=== PATIENT | female | born 1970 | race Caucasian/White ===

== ENCOUNTER 2018-01-08 20:50 | Emergency (ER) | payer MEDICAID ==
[2018-01-08 20:58] VITALS: TEMP 97.9
[2018-01-08] MEDS ORDERED: ADENOSINE 6 MG/2 ML VIAL ONE (20:58)
--- NOTE | 2018-01-08 21:00 | CPEKG ---
Heart Rate: 161 RR Interval: 373 QRSD Interval: 78 QT Interval: 284 QTC Interval: 465 P [place]: 0 QRS [place]: 102 T Wave [place]: 25 EKG Severity - BORDERLINE ECG - EKG Impression: SINUS TACHYCARDIA EKG Impression: RIGHT AXIS DEVIATION EKG Impression: MINIMAL ST DEPRESSION, INFERIOR LEADS Electronically Signed By: Enmanuel Salazar 08-Jan-2018 22:29:51
[2018-01-08] MEDS ORDERED: ADENOSINE 6 MG/2 ML VIAL IVP ONE (21:06)
[2018-01-08] MEDS ORDERED: NS 1,000 ML IV ONE (21:08)
--- NOTE | 2018-01-08 21:11 | EDPHY ---
H & P Smoking Status: Former smoker Time Seen by Provider: 01/08/18 21:07 HPI/ROS: CHIEF COMPLAINT: Rapid heart rate HISTORY OF PRESENT ILLNESS: 47-year-old female presents with rapid heart rate. Sudden onset of rapid heart rate 1 hr ago, associated with anxiety. No chest pain or shortness of breath. History of prior similar episode after taking Sudafed, which spontaneously resolved. She had 1 cup coffee this morning, which is not unusual for her. She has a history of hypothyroidism. Last TSH was normal. No other medications and no recent illness. REVIEW OF SYSTEMS: Constitutional: No fever, no chills Eyes: No visual changes ENT: No sore throat Respiratory: No cough, no shortness of breath Cardiac: No chest pain Gastrointestinal: no vomiting, no abdominal pain Genitourinary: no dysuria Musculoskeletal: No leg pain or swelling Skin: No rash Neurological: No headache, no weakness Psychiatric: No depression (Glenna Pereira) Past Medical/Surgical History: Hypothyroidism (Glenna Pereira) Social History: No recent alcohol (Glenna Pereira) Physical Exam: General Appearance: Alert, pleasant, anxious Eyes: Pupils equal and round, no conjunctival pallor ENT, Mouth: Mucous membranes moist Neck: Normal inspection Respiratory: Lungs are clear to auscultation Cardiovascular: Regular tachycardia Gastrointestinal: Abdomen is soft and nontender Neurological: A&O, nonfocal, normal gait Skin: Warm and dry, no rash Extremities: Normal inspection, no tenderness or swelling Psychiatric: Anxious (Glenna Periera) Constitutional: Initial Vital Signs Temperature (C) 36.6 C 01/08/18 20:56 Heart Rate 170 H 01/08/18 20:56 Respiratory Rate 20 01/08/18 20:56 Blood Pressure 161/126 H 01/08/18 20:56 O2 Sat (%) 94 01/08/18 20:56 O2 Delivery Mode Room Air Allergies/Adverse Reactions: No Known Allergies Allergy (Unverified 04/07/14 01:03) Home Medications: Medication Instructions Recorded Synthroid 02/01/14 Ondansetron Odt [Zofran Odt 4 mg 4 mg PO Q4 PRN #20 tab 04/07/14 (RX)] Oxycodone HCl/Acetaminophen 1 each PO Q6-8PRN #10 tablet 04/07/14 [Percocet 10-325 mg Tablet] Sulfamethox/Tmp 800/160 mg 1 tab PO BID@1000,2200 #14 tab 04/07/14 [Bactrim Ds] Cephalexin [Keflex] 500 mg PO QID #56 cap 05/03/14 Medical Decision Making - Diagnostics EKG Interpretation: EKG interpreted by me reveals SVT, rate 160, no ST or T segment changes. (Glenna Pereira) ED Course/Re-evaluation: This patient presents in SVT. Adenosine 6 mg IV given. Patient converted to normal sinus rhythm. 9:00 p.m.-signed over to Dr. Salazar at shift change. Plan is to check labs and to observe the patient in the emergency department. Heart rate is 100 and patient feels back to her normal baseline status. Labs and repeat EKG pending. (Glenna Pereira) 2117: Patient signed over to me at 9:00 p.m. Shift change. She presented in SVT heart rate in the 160s. She has a repeat EKG status post adenosine conversion sinus rhythm rate of 92. She is resting comfortably. There is no ST elevation no ST depression no significant T-wave abnormalities. No signs of ischemia on this EKG. Patient pending blood work at this time. 2145: Re-evaluation at this time this patient is resting comfortably. Heart rate is currently 97, blood pressure 151/105 pulse ox 97% on room air. She denies any chest pain or shortness of breath she does not feel lightheaded or dizzy. Her SVT has resolved. I do recommend she has close follow-up with Cardiology as this is her 2nd time of SVT. Additionally I have given her return precautions she understands return emergency room over the weekend if she develops chest pain shortness of breath or fast heart rate. Stay well- hydrated. I recommend she does not drink caffeine. (Enmanuel Salazar) - Data Points Laboratory Results: Laboratory Results 01/08/18 21:05 01/08/18 21:05 01/08/18 01/08/18 21: 21:05 WBC 10.54 10^3/uL H 10^3/uL (3.80-9.50) RBC 5.36 10^6/uL H 10^6/uL (4.18-5.33) Hgb 16.9 g/dL H g/dL (12.6-16.3) Hct 47.0 % % (38.0-47.0) MCV 87.7 fL fL (81.5-99.8) MCH 31.5 pg pg (27.9-34.1) MCHC 36.0 g/dL g/dL (32.4-36.7) RDW 12.3 % % (11.5-15.2) Plt Count 280 10^3/uL 10^3/uL (150-400) MPV 10.0 fL fL (8.7-11.7) Neut % (Auto) 53.9 % % (39.3-74.2) Lymph % (Auto) 36.1 % % (15.0-45.0) Miner % (Auto) 8.2 % % (4.5-13.0) Eos % (Auto) 1.1 % % (0.6-7.6) Baso % (Auto) 0.3 % % (0.3-1.7) Nucleat RBC Rel Count 0.0 % % (0.0-0.2) Absolute Neuts (auto) 5.69 10^3/uL 10^3/uL (1.70-6.50) Absolute Lymphs (auto) 3.80 10^3/uL H 10^3/uL (1.00-3.00) Absolute Monos (auto) 0.86 10^3/uL H 10^3/uL (0.30-0.80) Absolute Eos (auto) 0.12 10^3/uL 10^3/uL (0.03-0.40) Absolute Basos (auto) 0.03 10^3/uL 10^3/uL (0.02-0.10) Absolute Nucleated RBC 0.00 10^3/uL 10^3/uL (0-0.01) Immature Gran % 0.4 % % (0.0-1.1) Immature Gran # 0.04 10^3/uL 10^3/uL (0.00-0.10) Sodium 144 mEq/L mEq/L (135-145) Potassium 4.3 mEq/L mEq/L (3.5-5.2) Chloride 107 mEq/L mEq/L (97-110) Carbon Dioxide 25 mEq/l mEq/l (22-31) Anion Gap 12 mEq/L mEq/L (8-16) BUN 12 mg/dL mg/dL (7-23) Creatinine 0.8 mg/dL mg/dL (0.6-1.0) Estimated GFR > 60 Glucose 105 mg/dL H mg/dL (70-100) Calcium 10.1 mg/dL mg/dL (8.5-10.4) Medications Given: Discontinued Medications Adenosine (Adenosine) 6 mg IVP EDNOW ONE Stop: 01/08/18 21:07 Last Admin: 01/08/18 21:07 Dose: 6 mg Sodium Chloride (Ns) 1,000 mls @ 0 mls/hr IV ONCE ONE PRN Reason: Wide Open Stop: 01/08/18 21:09 Last Admin: 01/08/18 21:09 Dose: 1,000 mls Departure - Departure Disposition: Home, Routine, Self-Care Clinical Impression: Supraventricular tachycardia Condition: Good Instructions: Supraventricular Tachycardia (ED) Additional Instructions: Return for recurrent symptoms or any concerns. Referrals: Mitchel An DO [Primary Care Provider] - 5-7 days, call for appt. Luciano Whitney MD [Medical Doctor] - As per Instructions
--- NOTE | 2018-01-08 21:17 | CPEKG ---
Heart Rate: 92 RR Interval: 652 P-R Interval: 148 QRSD Interval: 84 QT Interval: 364 QTC Interval: 451 P [place]: 50 QRS [place]: 97 T Wave [place]: 42 EKG Severity - OTHERWISE NORMAL ECG - EKG Impression: SINUS RHYTHM EKG Impression: BORDERLINE RIGHT AXIS DEVIATION Electronically Signed By: Enmanuel Salazar 08-Jan-2018 22:29:51
[2018-01-08 21:21] LABS: PLATELET COUNT 280 10^3/uL (150-400)
[2018-01-08 22:19] VITALS: BP 140/100; PULSE 104; RESP 14; O2SAT 98
== END 2018-01-08 22:19 | disposition home or self-care (01) ==
DX: I47.1 Supraventricular tachycardia (principal); Z87.891 Personal history of nicotine dependence
CPT/HCPCS: 96374; J0153